=== PATIENT | female | born 1995 ===

== ENCOUNTER 2018-10-18 10:28 | Emergency (ER) | payer OTHER ==
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
--- NOTE | 2018-10-18 10:53 | C.PDOC ---
Chief Complaint (Nursing): Finger,Hand,&Wrist Past Medical History Vital Signs: Last Vital Signs Temp 98.5 F 10/18/18 10:42 Pulse 73 10/18/18 10:42 Resp 18 10/18/18 10:42 BP 126/80 10/18/18 10:42 Pulse Ox 99 10/18/18 10:42 ED Course And Treatment O2 Sat by Pulse Oximetry: 99 Disposition - Disposition
--- NOTE | 2018-10-18 11:53 | RAD ---
Date of service: 10/18/2018 PROCEDURE: Right small finger radiographs. HISTORY: fall, proximal 5th digit pain COMPARISON: None available TECHNIQUE: AP radiograph of the right hand, as well as spot oblique and lateral images of small finger were obtained. FINDINGS: RIGHT SMALL FINGER: Comminuted mildly displaced fracture at the base of the 5th proximal phalanx. Remainder of the right hand (as seen on the AP view) grossly unremarkable. JOINTS: No dislocation. SOFT TISSUES: Soft tissue swelling. No evidence of radiopaque foreign body. OTHER FINDINGS: None. IMPRESSION: Comminuted mildly displaced fracture at the base of the 5th proximal phalanx. Associated soft tissue swelling.
[2018-10-18 13:04] VITALS: BP 126/80; PULSE 73; RESP 18; TEMP 98.5; O2SAT 99
== END 2018-10-18 12:11 | disposition home or self-care (01) ==
LOC: C.ER 10:28
DX: S62.616A Displaced fracture of proximal phalanx of right little finger, initial encounter for closed fracture (principal); W05.1XXA Fall from non-moving nonmotorized scooter, initial encounter